=== PATIENT | male | born 1975 | race Hispanic/Latino ===

== ENCOUNTER 2018-06-17 14:49 | Emergency (ER) | payer SELFPAY | END 2018-06-17 16:02 | disposition left against medical advice (07) | LOC: ED 14:49 | DX: S01.551A Open bite of lip, initial encounter (principal); W54.0XXA Bitten by dog, initial encounter; Y93.89 Activity, other specified; Y92.89 Other specified places as the place of occurrence of the external cause; Y99.8 Other external cause status; Z53.21 Procedure and treatment not carried out due to patient leaving prior to being seen by health care provider ==

== ENCOUNTER 2019-01-02 22:43 | Emergency (ER) | payer SELFPAY ==
[2019-01-02] MEDS ORDERED: ASPIRIN PO ONE (23:49)
[2019-01-03 00:04] LABS: Basophils # (Auto) 0.1 K/mm3 (0.0-0.1); Basophils % (Auto) 0.9 % (0.0-1.8); Eosinophils # (Auto) 0.2 K/mm3 (0.0-0.4); Eosinophils % (Auto) 1.9 % (0.0-4.3); Hematocrit 44.6 % (35.5-45.6); Hemoglobin 15.3 gm/dl (11.8-15.2); Lymphocytes # (Auto) 2.5 K/mm3 (1.2-5.4); Lymphocytes % (Auto) 22.6 % (13.4-35.0); Mean Corpuscular HGB Conc 34 % (32-34); Mean Corpuscular Volume 91 fl (84-94); Monocytes # (Auto) 0.7 K/mm3 (0.0-0.8); Monocytes % (Auto) 6.2 % (0.0-7.3); Platelet Count 253 K/mm3 (140-440); Red Blood Count 4.92 M/mm3 (3.65-5.03)
[2019-01-03 00:38] LABS: BUN/Creatinine Ratio 16; Blood Urea Nitrogen 16 mg/dL (9-20); Calcium 9.1 mg/dL (8.4-10.2); Hemolysis Index 95
--- NOTE | 2019-01-03 00:43 | XRay Report ---
CHEST 1 VIEW INDICATION / CLINICAL INFORMATION: Chest Pain. COMPARISON: None available. FINDINGS: SUPPORT DEVICES: None. HEART / MEDIASTINUM: No significant abnormality. LUNGS / PLEURA: No significant pulmonary or pleural abnormality. No pneumothorax. ADDITIONAL FINDINGS: No significant additional findings. IMPRESSION: 1. No acute findings. Signer Name: Rolando Massey MD Signed: 01/03/2019 12:39 AM Workstation Name: [id number]
[2019-01-03 07:07] VITALS: BP 146/80
--- NOTE | 2019-01-03 08:04 | Emergency Department Report ---
ED General Adult HPI - General Chief complaint: Extremity Injury, Upper Stated complaint: ARM PAIN Time Seen by Provider: 01/03/19 08:02 Source: patient Mode of arrival: Ambulatory Limitations: No Limitations - History of Present Illness Initial comments: Patient is a 43-year-old male presents to emergency room with complaints of bilateral arm pain has been going on for 6 months. Patient states she is not having any chest pain or shortness of breath. Patient denies chest pain and shortness of breath. Patient states he never complained of chest pain or shortness of breath. Patient states the reason for coming to the ER was his bilateral arm pain has been going on for 6 months. Patient states the pain is a 4 out of 10. Patient states the pain is worse with movement and lifting. Patient states the pain is better when he rests and is not active. Patient states she has not seen a doctor or orthopedist for this problem. -: month(s) Location: upper extremity Radiation: non-radiation Severity scale (0 -10): 4 Quality: aching Consistency: constant Improves with: rest Worsens with: movement Associated Symptoms: denies: confusion, chest pain, cough, diaphoresis, fever/chills, headaches, loss of appetite, malaise, nausea/vomiting, rash, seizure, shortness of breath, syncope, weakness Treatments Prior to Arrival: none - Related Data Previous Rx's Medication Instructions Recorded Last Taken Type Acetaminophen/Codeine 1 tab PO Q6H PRN #15 tab 06/25/14 Unknown Rx [Acetaminophen-Codeine #3 TAB] Clindamycin [Clindamycin CAP] 300 mg PO Q8H #30 cap 06/25/14 Unknown Rx Allergies Allergy/AdvReac Type Severity Reaction Status Date / Time Penicillins Allergy Unknown Verified 08/09/13 21:17 ED Review of Systems ROS: Stated complaint: CHEST PAIN ARM PAIN Other details as noted in HPI Constitutional: denies: chills, fever Eyes: denies: eye pain, eye discharge, vision change ENT: denies: ear pain, throat pain Respiratory: denies: cough, shortness of breath, wheezing Cardiovascular: denies: chest pain, palpitations Endocrine: no symptoms reported Gastrointestinal: denies: abdominal pain, nausea, diarrhea Genitourinary: denies: urgency, dysuria Musculoskeletal: denies: back pain, joint swelling, arthralgia Skin: denies: rash, lesions Neurological: denies: headache, weakness, paresthesias Psychiatric: denies: anxiety, depression Hematological/Lymphatic: denies: easy bleeding, easy bruising ED Past Medical Hx - Past Medical History Previous Medical History?: Yes Hx Heart Attack/AMI: Yes (1991) - Surgical History Past Surgical History?: Yes Hx Cholecystectomy: Yes - Family History Family history: no significant - Social History Smoking Status: Never Smoker Substance Use Type: None - Medications Home Medications: Home Medications Medication Instructions Recorded Confirmed Last Taken Type Acetaminophen/Codeine 1 tab PO Q6H PRN #15 tab 06/25/14 Unknown Rx [Acetaminophen-Codeine #3 TAB] Clindamycin [Clindamycin CAP] 300 mg PO Q8H #30 cap 06/25/14 Unknown Rx ED Physical Exam - General Limitations: No Limitations General appearance: alert, in no apparent distress - Head Head exam: Present: atraumatic, normocephalic - Eye Eye exam: Present: normal appearance - ENT ENT exam: Present: mucous membranes moist - Neck Neck exam: Present: normal inspection - Respiratory Respiratory exam: Present: normal lung sounds bilaterally. Absent: respiratory distress, wheezes, rales - Cardiovascular Cardiovascular Exam: Present: regular rate, normal rhythm. Absent: systolic murmur, diastolic murmur, rubs, gallop - GI/Abdominal GI/Abdominal exam: Present: soft, normal bowel sounds. Absent: distended, tenderness, guarding - Rectal Rectal exam: Present: deferred - Extremities Exam Extremities exam: Present: normal inspection, full ROM. Absent: tenderness, no rmal capillary refill, pedal edema, joint swelling - Back Exam Back exam: Present: normal inspection - Neurological Exam Neurological exam: Present: alert, oriented X3 - Psychiatric Psychiatric exam: Present: normal affect, normal mood - Skin Skin exam: Present: warm, dry, intact, normal color. Absent: rash ED Course Vital Signs 01/02/19 01/03/19 01/03/19 23:15 03:21 04:00 Temperature 97.6 F Pulse Rate 77 65 62 Respiratory 18 16 20 Rate Blood Pressure 137/88 131/72 Blood Pressure 135/76 [Right] O2 Sat by Pulse 96 99 98 Oximetry 01/03/19 01/03/19 05:01 07:06 Temperature Pulse Rate 56 L 68 Respiratory 14 16 Rate Blood Pressure 131/79 Blood Pressure 146/80 [Right] O2 Sat by Pulse 98 98 Oximetry - Reevaluation(s) Reevaluation #1: I went back to the room to discuss the patient's results and the eloped. Prior to patient eloping from the ER the patient was given partial discharge i nstructions on management of his arm pain. I informed the patient that he needs to see an orthopedist and his primary care when he has a pain going on for 6 months. 01/03/19 09:49 ED Medical Decision Making - Lab Data Result diagrams: 01/02/19 23:54 01/02/19 23:54 - EKG Data -: EKG Interpreted by Me EKG shows normal: sinus rhythm, axis, intervals, QRS complexes, ST-T waves Rate: normal - Radiology Data Radiology results: report reviewed, image reviewed CHEST 1 VIEW INDICATION / CLINICAL INFORMATION: Chest Pain. COMPARISON: None available. FINDINGS: SUPPORT DEVICES: None. HEART / MEDIASTINUM: No significant abnormality. LUNGS / PLEURA: No significant pulmonary or pleural abnormality. No pneumothorax. ADDITIONAL FINDINGS: No significant additional findings. IMPRESSION: 1. No acute findings. - Medical Decision Making Patient is a 43-year-old mother's Emergency Room of Bilateral Arm Pain for 6 Months. Patient's Pain Is Chronic. Patient Needs to See a Orthopedist. Patient States Prior Needs to Find a Primary Care. Patient Eloped Prior to Being Able to Give the Patient IS Results and His Complete Discharge Instructions. However during Initial Exam Patient Was Instructed That He Most Likely Would Need to See an Orthopedist and His Primary Care. - Differential Diagnosis chronic arm pain Critical care attestation.: If time is entered above; I have spent that time in minutes in the direct care of this critically ill patient, excluding procedure time. ED Disposition Clinical Impression: Chronic arm pain Qualifiers: Laterality: bilateral Qualified Code(s): M79.601 - Pain in right arm Disposition: Z-07 ELOPED Is pt being admited?: No Does the pt Need Aspirin: No Condition: Stable Additional Instructions: Patient to follow up with primary care in 2-3 days. Patient to follow-up with orthopedist in 2-3 days. Patient to take Tylenol when necessary pain. Patient to return to ER if condition worsens. Patient increase water. Patient to rest. Patient to avoid strenuous exercise until cleared by orthopedics. Referrals: [facility], MD [Primary Care Provider] - 2-3 Days Time of Disposition: 09:54
== END 2019-01-03 09:45 | disposition left against medical advice (07) ==
LOC: ED 22:43
DX: M79.601 Pain in right arm (principal); M79.602 Pain in left arm; G89.29 Other chronic pain; Z88.0 Allergy status to penicillin; Z90.49 Acquired absence of other specified parts of digestive tract
CPT/HCPCS: 36415; 71045; 80048; 84484; 85025; 93005; 93010; 99284